=== PATIENT | male | born 1970 | race Caucasian/White ===

== ENCOUNTER 2023-11-30 15:44 | Emergency (ER) | payer OTHER, SELFPAY ==
[2023-11-30] VITALS (14 sets, daily range): BP systolic 124–145; BP diastolic 65–92; PULSE 84–97; RESP 20; TEMP 36.9–37.2; O2SAT 91–100
--- NOTE | ~2023-11-30 | XR_ITS ---
XR chest 1V portable Ordering provider: Ezio Grant DO History: 53 years Male with . dyspnea/sob . Comparison: None. FINDINGS: MEDIASTINUM: The cardiac silhouette is not enlarged. LUNGS: No infiltrates, effusions or pneumothorax. OTHER: No free air under the diaphragm. Degenerative changes of the spine. IMPRESSION: No acute cardiopulmonary pathology. Reviewed, dictated and finalized at location A.
--- NOTE | 2023-11-30 15:54 | ECG_ITS ---
Test Date: 2023-11-30 16:08:59 Measurements Intervals [place] Rate: 89 P: 65 ND: 162 QRS: 255 QRSD: 110 T: 73 QT: 372 QTc: 454 Interpretive Statements SINUS RHYTHM INDETERMINATE AXIS POSSIBLE RIGHT VENTRICULAR HYPERTROPHY [SOME/ALL OF: PROMINENT R IN V1, LATE TRANSITION, RAD, SABAS, SSS] ABNORMAL ECG No previous ECG available for comparison Electronically Signed On 12-01-2023 10:50:21 CDT by Oswaldo Ko M.D.
--- NOTE | 2023-11-30 15:56 | ED.GENADULT ---
HPI - General Adult General Chief complaint: Shortness of Breath/Dyspnea Stated complaint: difficulty breathing Time Seen by Provider: 11/30/23 15:54 History of Present Illness HPI narrative: Biju is a 53M with a PMH of tobacco abuse that was brought in by EMS with dyspnea. He was staying in a van at a gas station for a week and he was asked to leave by law enforcement then said he had dyspnea. He reports that it has been present for 2 days. No fevers, CP, vomiting or lightheadedness. He only speaks [place] so history was taken with the american sign language interpreter. Related Data Allergies Allergy/AdvReac Type Severity Reaction Status Date / Time No Known Allergies Allergy Verified 11/30/23 16:08 Review of Systems Review of Systems: All systems reviewed & are unremarkable except as noted in HPI and below Constitutional: Constitutional: Reports as per HPI and Reports no additional constitutional complaints Exam Const: General: cooperative, healthy appearing, comfortable, no acute distress, well developed, alert, awake and Physically active Orientation/consciousness: oriented to person, oriented to place and oriented to time HENMT: Head: normal to inspection, normocephalic and atraumatic Ears: hearing grossly normal bilaterally and external ears normal Face/Nose/Sinus: Normal external nose present Eyes: General: appearance normal, both eyes and all related structures Periorbital: periorbital findings normal Sclera: sclerae normal Pupils: Equal, round and reactive pupils present Neck: Neck: normal visual inspection Chest: Chest palpation & inspection: normal inspection of the chest Resp: Effort & Inspection: normal respiratory effort, able to speak in complete sentences and no respiratory distress Auscultation: clear to auscultation bilaterally Other: diffuse wheezing and prolonged expiratory phase. Cardio: Jugular venous distension: no JVD Rate: regular rate Rhythm: regular rhythm GI: Inspection: normal to inspection GI Palp: Yes Soft to palpation Auscultation: normal bowel sounds Skin: General skin exam: normal color and no rashes or lesions noted Neuro: General: oriented to person, oriented to place and oriented to time Cranial nerves: Yes Equal, round and reactive pupils present Extrem: General: normal to inspection Course Course Emergency Course: Ordered radiographs, labs and EKG as well as duo neb. EKG showed NSR with a rate of 89, possible LAD but no ST elevation/depression, QTc of 419 Comparison: None. FINDINGS: MEDIASTINUM: The cardiac silhouette is not enlarged. LUNGS: No infiltrates, effusions or pneumothorax. OTHER: No free air under the diaphragm. Degenerative changes of the spine. IMPRESSION: No acute cardiopulmonary pathology. Labs showed mild leukopenia, unremarkable chemistries, and negative viral testing. Given he has smoked 1-2ppd most of his life, wheezing and cough with the dyspnea symptoms are most likely a COPD exacerbation. Given prednisone and azithromycin. Vital Signs Vital signs: Vital Signs Temperature 98.9 F 11/30/23 15:44 Pulse Rate 92 11/30/23 15:44 Respiratory Rate 20 11/30/23 15:44 Blood Pressure 138/92 H 11/30/23 15:44 Pulse Oximetry 95 11/30/23 15:44 Oxygen Delivery Room Air 11/30/23 15:44 Temperature 98.4 F 11/30/23 17:52 Pulse Rate 97 11/30/23 17:52 Respiratory Rate 20 11/30/23 17:52 Blood Pressure 124/69 11/30/23 17:52 Pulse Oximetry 92 11/30/23 17:52 Oxygen Delivery Room Air 11/30/23 17:52 Medical Decision Making Vital Signs Vital Signs: Vital Signs Temperature 98.9 F 11/30/23 15:44 Pulse Rate 92 11/30/23 15:44 Respiratory Rate 20 11/30/23 15:44 Blood Pressure 138/92 H 11/30/23 15:44 Pulse Oximetry 95 11/30/23 15:44 Oxygen Delivery Room Air 11/30/23 15:44 Temperature 98.4 F 11/30/23 17:52 Pulse Rate 97 11/30/23 17:52 Respiratory Rate 20 11/30/23 17:52 Blood Pressure 124
[2023-11-30] MEDS: IPRATROPIUM 0.5 MG/ALBUTEROL SULFATE 2.5 MG AMPUL.NEB 3 ML INHALATION (16:09)
[2023-11-30 16:10] LABS: Basophils Absolute Auto 0.02 K/mm3 (0.00-0.10); Basophils Percent Auto 0.4 % (0.0-1.0); Eosinophils Absolute Auto 0.01 K/mm3 (0.02-0.50); Eosinophils Percent Auto 0.2 % (1.0-6.0); Hematocrit 41.3 % (40.0-54.0); Immature Granulocyte Absolute 0.02 K/mm3 (0.00-0.00); Immature Granulocyte Percent A 0.4 % (0.0-0.0); Lymphocytes Absolute Auto 1.02 K/mm3 (1.10-4.50); Lymphocytes Percent Auto 22.9 % (18.0-42.0); Mean Corpuscular HGB Conc 36.3 g/dL (32-36); Mean Corpuscular Hemoglobin 34.6 pg (27.0-31.0); Mean Corpuscular Volume 95.2 fL (78.0-102.0); Mean Platelet Volume 9.4 fl (8.7-11.0); Monocytes Absolute Auto 0.31 K/mm3 (0.10-0.90); Neutrophils Absolute Auto 3.08 K/mm3 (1.70-7.20); Neutrophils Percent Auto 69.1 % (50.0-70.0); Platelet Count Result 206 K/mm3 (150-420); Red Blood Count 4.34 M/mm3 (4.70-6.10); Red Cell Distribution Width 14.1 % (11.6-14.4); White Blood Count 4.5 K/mm3 (4.8-10.8)
[2023-11-30 16:32] LABS: Alanine Aminotransferase 39 U/L (16-63); Alkaline Phosphatase 121 U/L (46-116); Anion Gap 11 mmol/L (4-12); Aspartate Amino Transferase 36 U/L (15-37); Bilirubin,Total 0.3 mg/dL (0.00-1.00); Blood Urea Nitrogen 15 mg/dL (7-18); Calcium 7.9 mg/dL (8.5-10.1); Carbon Dioxide 29 mmol/L (21-32); Chloride 104 mmol/L (98-108); Estimated CRCL calculation 73 ml/min; Estimated Glomerular Filt Rate > 60; Glucose 94 mg/dL (70-99); NT Pro B Type Natriuretic Pept 64 pg/mL (0-125); Osmolality Calculated 298 mOsm/kg (285-295); Potassium 3.4 mmol/L (3.5-5.1); Sodium 144 mmol/L (136-145); Total Protein 6.5 g/dL (6.4-8.2); Troponin I 8.6 ng/L (0.00-60.4)
[2023-11-30 17:21] LABS: SARS-CoV-2 RNA PCR Negative (Negative)
[2023-11-30 17:24] LABS: Influenza A QL RT-PCR Negative (Negative); Influenza B QL RT-PCR Negative (Negative); RSV RNA, RT-PCR Negative (Negative)
[2023-11-30] MEDS: AZITHROMYCIN 250 MG TABLET 500 MG PO (17:34)
[2023-11-30] MEDS: predniSONE 40 MG, predniSONE 10 MG 50 MG PO (17:34)
== END 2023-11-30 17:52 | disposition home or self-care (01) ==
PROVIDERS: Emergency Provider Family Medicine
DX: J44.1 Chronic obstructive pulmonary disease with (acute) exacerbation (principal); Z20.822 Contact with and (suspected) exposure to COVID-19
CPT/HCPCS: 36415; 71045; 80053; 83880; 84484; 85025; 87637; 93005; 94640; 99284; A9270; J7512